=== PATIENT | male | born 1960 | race African-American/Black ===

== ENCOUNTER 2025-05-11 02:21 | Inpatient (IN) | payer OTHER ==
[2025-05-11] MEDS ORDERED: Acetaminophen 500 MG TAB ONE (02:51)
[2025-05-11 03:13] LABS: #Basophils 0.03 10x3/uL (0.0-0.2); #Eosinophils Less than 0.03 10x3/uL (0.0-0.5); #Monocytes 0.21 10x3/uL (0.0-1.1); #Neutrophils 12.61 10x3/uL (1.5-8.4); %Basophils 0.2 % (0.0-2.0); %Eosinophils 0.1 % (0.0-6.0); %Lymphocytes 2.9 % (18.0-47.0); %Monocytes 1.6 % (0.0-10.0); %Neutrophils 93.7 % (40.0-75.0); Hematocrit 28.3 % (38.8-50.0); Hemoglobin 10.2 g/dL (13.5-17.5); Mean Corpuscular Hemoglobin 26.2 pg (27.0-33.0); Mean Corpuscular Volume 72.6 fL (81.2-95.1); Platelet Count 86 10x3/uL (150-450); Red Blood Cell (RBC) Count 3.90 10x6/uL (4.32-5.72); White Blood Cell (WBC) Count 13.46 10x3/uL (3.5-10.5)
[2025-05-11 03:14] LABS: ALT (SGPT) 21 U/L (Less than 45); AST (SGOT) 95 U/L (11-34); Albumin 2.4 g/dL (3.1-4.5); Alkaline Phosphatase 110 U/L (40-110); Anion Gap 15 mmol/L (10-20); BUN (Urea Nitrogen) 42 mg/dL (8.4-25.7); Bilirubin, Total 2.0 mg/dL (0.3-1.2); Calc. Creatinine Clearance 0 mL/min (70-130); Calcium 7.7 mg/dL (7.8-10.44); Carbon Dioxide 19 mmol/L (23-31); Chloride 103 mmol/L (98-107); Globulin 3.4 g/dL (2.4-3.5); Glucose 119 mg/dL (80-115); Potassium 3.0 mmol/L (3.5-5.1); Sodium 134 mmol/L (136-145)
[2025-05-11 03:45] LABS: MDiff Complete? YES; Microcytosis SLIGHT = 6-15 cells (100X) (0-5/hpf); Platelet Adequacy Comment Appears Decreased
[2025-05-11] MEDS ORDERED: Albuterol 2.5 MG (3 mL) NEB ONE (03:58)
[2025-05-11 04:15] LABS: Actual Bicarbonate (HCO3a) 20.8 mEq/L (22-28); Analyzer IN Cardio CS ER; Base Excess (BEa) -1.6 mEq/L (-2.0 to +3.0); CO2 Tension 27.6 mmHg (35.0-45.0); Calcium, Ionized (arterial) 1.02 mmol/L (1.12-1.30); Hematocrit-ABG 30 % (42.0-52.0); Hemoglobin (Hb) 10.1 g/dL (14.0-18.0); O2 Tension (PaO2), arterial 80.2 mmHg (> 80.0); Potassium - ABG Lab 2.78 mmol/L (3.70-5.30); Puncture Site Right Radial artery; pH, Arterial 7.496 (7.35-7.45)
[2025-05-11] MEDS ORDERED: diphenhydrAMINE 50 MG/ML VIAL ONE (04:32)
[2025-05-11] MEDS ORDERED: Ibuprofen 200 MG TAB ONE (04:33)
[2025-05-11] MEDS ORDERED: Prochlorperazine 10 MG/2 ML VIAL ONE (04:33)
[2025-05-11 04:39] LABS: Troponin I 1.952 ng/mL (< 0.028)
[2025-05-11] MEDS ORDERED: Aspirin Chewable 81 MG TAB ONE (05:44)
[2025-05-11] MEDS ORDERED: NOREPINEPHRINE 8 MG/250 ML-D5W 250 ML ONE (06:08)
[2025-05-11] MEDS: NOREPINEPHRINE 8 MG/250 ML-D5W 250 ML ONE (06:45)
[2025-05-11] MEDS: NOREPINEPHRINE 8 MG/250 ML-D5W 250 ML IVPB SCH (06:49)
[2025-05-11] MEDS ORDERED: Heparin 10,000 UNITS/ 10 ML VIAL SLOW IVP SCH (07:00)
[2025-05-11 07:23] LABS: Fibrinogen 247.0 mg/dL (220-504); INR-International Normal Ratio 1.2; Prothrombin Time 12.6 sec (9.5-12.1)
[2025-05-11 07:30] VITALS: BP 88/57
[2025-05-11 07:49] LABS: Glucose, Urine (Dipstick) Normal (Negative); Leukocyte 25 (Negative); Protein, Urine (Dipstick) 30 mg/dl (Neg-Trace); Specific Gravity, Urine 1.015 (1.005-1.030)
[2025-05-11 07:55] LABS: Hematocrit 24.3 % (38.8-50.0); Hemoglobin 8.7 g/dL (13.5-17.5); Mean Corpuscular Hemoglobin 26.3 pg (27.0-33.0); Mean Corpuscular Volume 73.4 fL (81.2-95.1); Platelet Count 77 10x3/uL (150-450); Red Blood Cell (RBC) Count 3.31 10x6/uL (4.32-5.72); White Blood Cell (WBC) Count 28.48 10x3/uL (3.5-10.5)
[2025-05-11 07:58] LABS: Bacteria/HPF 3+ HPF (None Seen); Mucous/LPF Rare LPF (<2+)
[2025-05-11 08:06] LABS: Magnesium 2.0 mg/dL (1.6-2.6)
[2025-05-11 08:12] VITALS: BMI 34.1
[2025-05-11] MEDS: Vancomycin 1.5 GRAM/300 ML BAG 1.5 GM in Premix 1 BAG IVPB SCH (09:17)
[2025-05-11 09:39] LABS: Dohle Bodies SLIGHT; MDiff Complete? YES; Platelet Adequacy Comment Appears Decreased
[2025-05-11] MEDS ORDERED: Iopamidol 300 61% 100 ML VIAL FS ONE (09:48)
[2025-05-11] MEDS: Pantoprazole 40 MG VIAL IVP SCH (10:00)
[2025-05-11] MEDS: Magnesium 2 GM/50 ML(in water) 2 GM in Premix 1 BAG IVPB SCH (10:36)
[2025-05-11 13:38] LABS: Platelet Count 76 10x3/uL (150-450)
[2025-05-11 13:39] LABS: Hematocrit 24.4 % (38.8-50.0); Hemoglobin 8.8 g/dL (13.5-17.5); Mean Corpuscular Hemoglobin 26.7 pg (27.0-33.0); Mean Corpuscular Volume 74.2 fL (81.2-95.1); Red Blood Cell (RBC) Count 3.29 10x6/uL (4.32-5.72); White Blood Cell (WBC) Count 27.25 10x3/uL (3.5-10.5)
[2025-05-11 13:47] LABS: Anion Gap 14 mmol/L (10-20); BUN (Urea Nitrogen) 43 mg/dL (8.4-25.7); Calc. Creatinine Clearance 57 mL/min (70-130); Calcium 7.2 mg/dL (7.8-10.44); Carbon Dioxide 20 mmol/L (23-31); Chloride 104 mmol/L (98-107); Glucose 146 mg/dL (80-115); Potassium 3.3 mmol/L (3.5-5.1); Sodium 135 mmol/L (136-145)
[2025-05-11 16:10] VITALS: TEMP 97.9
[2025-05-12] MEDS ORDERED: Aspirin 81 mg Enteric Coated Tablet PO SCH (09:00)
[2025-05-12] MEDS ORDERED: VANCOMYCIN 1.25 GM/250 ML BAG 1.25 GM in Premix 1 BAG IVPB SCH (09:00)
== END 2025-05-11 17:45 | disposition home or self-care (01) | DRG 871 ==
LOC: CSHERS 02:21 → CSHICU 06:24
PROVIDERS: ADMIT Family Medicine; ATTEND Internal Medicine
PROC: 05HM33Z Insertion of Infusion Device into Right Internal Jugular Vein, Percutaneous Approach (ICD-10-PCS; principal; 2025-05-11)
PROC: 3E043XZ Introduction of Vasopressor into Central Vein, Percutaneous Approach (ICD-10-PCS; 2025-05-11)
PROC: 3E04329 Introduction of Other Anti-infective into Central Vein, Percutaneous Approach (ICD-10-PCS; 2025-05-11)
DX: A41.9 Sepsis, unspecified organism (principal); I21.4 Non-ST elevation (NSTEMI) myocardial infarction; K68.12 Psoas muscle abscess; R65.21 Severe sepsis with septic shock; I33.0 Acute and subacute infective endocarditis; E87.3 Alkalosis; R19.7 Diarrhea, unspecified; M19.90 Unspecified osteoarthritis, unspecified site; K21.9 Gastro-esophageal reflux disease without esophagitis; Z96.652 Presence of left artificial knee joint; Z98.1 Arthrodesis status; E87.6 Hypokalemia; N18.9 Chronic kidney disease, unspecified; I12.9 Hypertensive chronic kidney disease with stage 1 through stage 4 chronic kidney disease, or unspecified chronic kidney disease; D69.6 Thrombocytopenia, unspecified; B96.89 Other specified bacterial agents as the cause of diseases classified elsewhere; I34.0 Nonrheumatic mitral (valve) insufficiency
CPT/HCPCS: 36415; 36600; 71045; 74176; 74177; 80053; 81001; 82533; 82805; 83605; 83735; 83880; 84484; 85025; 85384; 85610; 85730; 86140; 87040; 87077; 87081; 87086; 87149; 87186; 87428; 93005; 93306; 96374; 96375; J0780; J1200; J1644; J2470; J2543; J3010; J3373; J3475; J7030; J7611; Q0162; Q9967